=== PATIENT | female | born 1950 | race African-American/Black ===

== ENCOUNTER 2022-07-05 12:13 | Outpatient (CLI) | payer BC, MEDICARE, SELFPAY ==
[2022-07-05 18:44] LABS: Alanine Aminotransferase 12 U/L (6-35); Albumin Level 4.3 g/dL (3.5-5.1); Alkaline Phosphatase 57 U/L (38-126); Anion Gap 10 mmol/L (8-16); Aspartate Amino Transferase 36 U/L (14-36); Bilirubin,Total 0.8 mg/dL (0.2-1.3); Blood Urea Nitrogen 15 mg/dL (7-17); Calcium 9.7 mg/dL (8.4-10.2); Carbon Dioxide 29 mmol/L (22-30); Chloride 104 mmol/L (98-107); Cholesterol 194 mg/dL (0-200); Estimated Glomerular Filt Rate > 60; Glucose 96 mg/dL (65-110); HDL Direct 50 mg/dL; Sodium 143 mmol/L (137-145); Triglycerides 60 mg/dL (<150)
[2022-07-05 18:50] LABS: Basophils Percent Auto 0.4 % (0.2-1.2); Eosinophils Absolute Auto 0.1 K/mm3 (0-0.3); Hematocrit 44.2 % (37.0-47.0); Hemoglobin 14.2 g/dL (12.0-15.0); Immature Granulocyte Absolute 0.01 K/mm3 (0.00-0.031); Immature Granulocyte Percent A 0.1 % (0-0.5); Lymphocytes Absolute Auto 1.57 K/mm3 (0.9-3.2); Lymphocytes Percent Auto 23.5 % (18.3-44.2); Mean Corpuscular HGB Conc 32.1 g/dl (32-36); Mean Corpuscular Hemoglobin 30.6 pg (26-34); Mean Corpuscular Volume 95.3 fl (80-100); Monocytes Absolute Auto 0.4 K/mm3 (0.1-0.6); Monocytes Percent Auto 6.3 % (2.6-8.5); Neutrophils Absolute Auto 4.6 K/mm3 (1.3-6.7); Neutrophils Percent Auto 68.7 % (45.5-73.1); Platelet Count Result 216 k/mm3 (150-375); Red Blood Count 4.64 M/mm3 (4.2-5.4); Red Cell Distribution Width 13.2 % (11.5-14.5); White Blood Count 6.7 K/mm3 (4.5-10.0)
[2022-07-05 19:02] LABS: LDL Cholesterol Direct 108 mg/dL
== END 2022-07-05 12:14 | disposition home or self-care (01) ==
PROVIDERS: PCP Family Medicine; Visit Provider Nurse Practitioner Family
DX: E78.5 Hyperlipidemia, unspecified (principal); E55.9 Vitamin D deficiency, unspecified
CPT/HCPCS: 36415; 80053; 80061; 82306; 85025

== ENCOUNTER 2025-01-07 12:34 | Outpatient (CLI) | payer MEDICARE, SELFPAY ==
--- OUTSIDE RECORDS SUMMARY | 2025-01-07 13:39 | XMS_ITS | Clinical Summary ---
Author Organization [facility]era [facility] Address [address] [place] [address] Care Team Providers Care Optometric Assistant Name Role Phone Amelia Spear MD Primary Care Provider Allergies No known active allergies Medications memantine (NAMENDA) 5 mg Tablet Take 10 mg by mouth 2 times daily. Active atorvastatin (LIPITOR) 10 mg tablet Take 10 mg by mouth daily. Active sertraline (ZOLOFT) 50 mg tablet Take 50 mg by mouth daily. Active Active Problems No known active problems Family History Medical History Relation Name Comments No Known Problems Brother 1 Prostate Cancer Brother 2 No Known Problems Brother 3 No Known Problems Daughter 1 No Known Problems Daughter 2 No Known Problems Daughter 3 No Known Problems Father No Known Problems Mother No Known Problems Sister 1 No Known Problems Sister 2 No Known Problems Son 1 No Known Problems Son 2 No Known Problems Son 3 No Known Problems Son 4 Relation Name Status Comments Brother 1 Brother 2 Alive Brother 3 Alive Daughter 1 Alive Daughter 2 Alive Daughter 3 Alive Father Alive Mother Alive Sister 1 Alive Sister 2 Alive Son 1 Alive Son 2 Alive Son 3 Alive Son 4 Social History Tobacco Use Types Packs/Day Years Used Date Smoking Tobacco: Former Cigarettes Q uit: 10/02/2009 Tobacco Cessation:Counseling Given: Not Answered Comments Unknown Sex and Gender Information Value Date Recorded Sex Assigned at Not on file Legal Sex Female 1:53 PM CDT Gender Identity Not on file Sexual Orientation Not on file Last Filed Vital Signs Vital Sign Reading Time Taken Comments Blood Pressure 148/77 10/17/2022 1:42 PM PUBLIC AID ELIGIBILITY ASSISTANT Pulse 76 10/17/2022 1:42 PM PUBLIC AID ELIGIBILITY ASSISTANT Temperature 36.4 C (97.5 F) 10/17/2022 1:42 PM PUBLIC AID ELIGIBILITY ASSISTANT Respiratory Rate 16 10/17/2022 1:42 PM PUBLIC AID ELIGIBILITY ASSISTANT Oxygen Saturation 91% 10/17/2022 1:42 PM PUBLIC AID ELIGIBILITY ASSISTANT Inhaled Oxygen Concentration - - Weight 70.5 kg (155 lb 6.4 oz) 10/17/2022 1:42 P M PUBLIC AID ELIGIBILITY ASSISTANT Height 180.3 cm (5' 11 ) 10/17/2022 1:42 PM PUBLIC AID ELIGIBILITY ASSISTANT Body Mass Index 21.67 10/17/2022 1:42 PM PUBLIC AID ELIGIBILITY ASSISTANT Plan of Treatment Health Maintenance Due Date Last Done Comments DTAP/TDAP/TD VACCINES (1 - Tdap) 1969 BREAST CANCER SCREENING 1990 COLORECTAL SCREENING 1995 Colorectal Cancer Screening 1995 FIT-DNA Q 3 years 1995 FIT/FOBT Q 1 year 1995 Flex Sig/CT Colonography Q 5 years 1995 PNEUMOCOCCAL VACCINE 50+ YEARS (1 of 1 - PCV) 03/18/20 00 ZOSTER VACCINE (1 of 2) 2000 OSTEOPOROSIS SCREENING 2015 INFLUENZA VACCINE (#1) 2024 RSV VACCINE (60+ or ) (1 - 1-dose 75+ series) 2025 Insurance [employer] PPO MEDICARE PART A AND B Care Teams Optometric Assistant Relationship Specialty Start Date End Date Amelia Spear MD [address] [place] [address] PCP - General Family Practice 10/17/22
--- OUTSIDE RECORDS SUMMARY | 2025-01-07 13:39 | XMS_ITS | Clinical Summary ---
Author Organization [facility] Address [address] [place] [address] Care Team Providers Care Margarine Churn Operator Name Role Phone Amelia Separ MD Primary Care Provider Source Comments [facility],non-[facility] Affiliates and Associated Physician Practices is amultiple site organization consisting of ambulatory clinics and hospital sitesin [place], [place], [place] and [place]. This disclosure is being madepursuant to the Care Everywhere program and may not contain all information available regarding this patient. Last updated 18.[facility] Social History Tobacco Use Types Packs/Day Years Used Date Smoking Tobacco: Former Smokeless Tobacco: Never Sex and Gender Information Value Date Recorded Sex Assigned at Not on file Gender Identity Not on file Sexual Orientation Not on file Plan of Treatment Health Maintenance Due Date Last Done Comments BONE DENSITY TESTING 1950 COLOGUARD (AGES 45-75) - COL ON CA SCREENING 1950 COLON MONITORING 1950 COLONOSCOPY - COLON CA SCREENING 1950 CT COLONOGRAPHY - COLON CA SCREENING 1950 Colorectal Cancer Screening 1950 FIT - COLON CA SCREENING 1950 FLEX SIG - COLON CA SCREENING 1950 LIPID TESTING 1950 MAMMOGRAM 1950 MEDICARE AWV 12 MONTHS 1950 HEPATITIS C SCREENING 03/13/1968 DTAP/TDAP/TD VACCINES (1 - Tdap) 1969 PNEUMOCOCCAL VACCINE 50+ (1 of 1 - PCV) 2000 ZOSTER VACCINE (1 of 2) 2000 COVID-19 VACCINE (2023-2 5 season) 2024 INFLUENZA VACCINE (#1) 2024 DEPRESSION SCREENING 10/02/2024 Respiratory Syncytial Virus (RSV) Vaccine Pt: or over 60 yrs (1 - 1-dose 75+ series) 2025 HEPATITIS B VACCINE Aged Out No longe r eligible based on patient's age to complete this topic HIB VACCINE Aged Out No longer eligi ble based on patient's age to complete this topic HPV VACCINE Aged Out No longer eligi ble based on patient's age to complete this topic MENINGOCOCCAL (Group B) VACC INE SHARED DECISION-MAKING Aged Out No longer eligibl e based on patient's age to complete this topic MENINGOCOCCAL GROUPS A/C/Y/W VACCINE Aged Out No longer eligible b ased on patient's age to complete this topic Care Teams Margarine Churn Operator Relationship Specialty Start Date End Date Amelia Spear MD [address] [place] [address] PCP - General 09/08/21
[2025-01-07 16:06] LABS: Alanine Aminotransferase 16 U/L (6-35); Albumin Level 4.1 g/dL (3.5-5.1); Alkaline Phosphatase 58 U/L (38-126); Anion Gap 6 mmol/L (4-12); Aspartate Amino Transferase 28 U/L (14-36); Bilirubin,Total 1.1 mg/dL (0.2-1.3); Blood Urea Nitrogen 17 mg/dL (7-17); Calcium 9.5 mg/dL (8.4-10.2); Carbon Dioxide 33 mmol/L (22-30); Chloride 102 mmol/L (98-107); Cholesterol 219 mg/dL (0-200); Estimated Glomerular Filt Rate 60; Glucose 75 mg/dL (65-110); HDL Direct 49 mg/dL; Potassium 3.5 mmol/L (3.4-5.0); Sodium 141 mmol/L (137-145); Triglycerides 74 mg/dL (<150)
[2025-01-07 16:13] LABS: Vitamin D 25 Hydroxy 17.4 ng/mL
[2025-01-07 17:11] LABS: LDL Cholesterol Direct 131 mg/dL
[2025-01-07 17:21] LABS: Basophils Percent Auto 0.4 % (0.2-1.2); Eosinophils Absolute Auto 0.1 K/mm3 (0-0.3); Eosinophils Percent Auto 0.9 % (0-4.4); Immature Granulocyte Absolute 0.02 K/mm3 (0.00-0.031); Immature Granulocyte Percent A 0.3 % (0-0.5); Lymphocytes Absolute Auto 1.12 K/mm3 (0.9-3.2); Lymphocytes Percent Auto 16.3 % (18.3-44.2); Mean Corpuscular HGB Conc 31.8 g/dl (32-36); Mean Corpuscular Volume 94.2 fl (80-100); Monocytes Absolute Auto 0.7 K/mm3 (0.1-0.6); Monocytes Percent Auto 9.9 % (2.6-8.5); Neutrophils Percent Auto 72.2 % (45.5-73.1); Platelet Count Result 208 k/mm3 (150-375); Red Blood Count 4.67 M/mm3 (4.2-5.4); Red Cell Distribution Width 11.9 % (11.5-14.5); White Blood Count 6.9 K/mm3 (4.5-10.0)
[2025-01-07 19:36] LABS: Hemoglobin A1C 5.5 % (<5.7)
== END 2025-01-07 12:35 | disposition home or self-care (01) ==
PROVIDERS: PCP Family Medicine; Visit Provider Family Medicine
DX: E78.5 Hyperlipidemia, unspecified (principal); E55.9 Vitamin D deficiency, unspecified; R73.9 Hyperglycemia, unspecified; N39.0 Urinary tract infection, site not specified; G30.9 Alzheimer's disease, unspecified; F02.80 Dementia in other diseases classified elsewhere, unspecified severity, without behavioral disturbance, psychotic disturbance, mood disturbance, and anxiety; R41.3 Other amnesia; E53.8 Deficiency of other specified B group vitamins; Z79.899 Other long term (current) drug therapy
CPT/HCPCS: 36415; 80053; 80061; 82306; 82607; 83036; 84443; 85025; 87086

== ENCOUNTER 2025-01-09 11:51 | Emergency (ER) | payer MEDICARE, SELFPAY ==
--- NOTE | 2025-01-09 11:52 | ED_ITS ---
HPI - General Adult General Chief complaint: Extremity Problem,Nontraumatic Stated complaint: BILAT KNEE PAIN Time Seen by Provider: 01/09/25 11:51 Source: patient, RN notes reviewed and old records reviewed Mode of arrival: ambulatory Limitations: no limitations History of Present Illness HPI narrative: 74-year-old female presents to the [facility] with her daughter with complaints of bilateral knee pain that started 6 days ago. Patient denies any pain currently. No redness, swelling, ecchymosis noted. Patient with a significant history of dementia Related Data Home Medications ?Medication ?Instructions ?Recorded ?Confirmed ?Last Taken ?Type Aricept 01/09/25 Unknown History Namenda 01/09/25 Unknown History Zoloft 01/09/25 Unknown History atorvastatin 01/09/25 Unknown History Allergies Allergy/AdvReac Type Severity Reaction Status Date / Time No Known Allergies Allergy Verified 01/09/25 11:54 Review of Systems Review of Systems: All systems reviewed & are unremarkable except as noted in HPI and below Constitutional: Constitutional: Reports no additional constitutional complaints ENT: Reports system reviewed and no additional complaints, except as documented Cardiovascular: Cardiovascular: Reports no additional cardiovascular complaints, Denies chest pain and Denies dyspnea Respiratory: Respiratory: Reports no additional respiratory complaints, Denies chest congestion, Denies cough and Denies dyspnea Musculoskeletal: Musculoskeletal: Reports as per HPI Integumentary/Breasts: Skin/Breast: Reports system reviewed and no additional complaints, except as docu PMFSH Comments At the time of my signature, I reviewed and agree with the nursing past medical, surgical, social, and family history. There is no relevant family history pertinent to the patient complaint. Exam Const: General: cooperative, no acute distress, well developed, alert and well nourished Nutritional Appearance: well nourished Orientation/consciousness: patient oriented x3 Limitations: no limitations HENMT: Head: normal to inspection Eyes: General: appearance normal, both eyes and all related structures Alignment and Position: alignment normal Neck: Neck: normal visual inspection, full ROM, no lymphadenopathy and no meningeal signs Chest: Chest palpation & inspection: normal inspection of the chest Resp: Effort & Inspection: normal respiratory effort and able to speak in c omplete sentences Cardio: Rate: regular rate Skin: General skin exam: normal color and no rashes or lesions noted Neuro: General: patient oriented x3, gait normal, moves all extremities and no meningeal signs Cognition (Neuro): normal cognition Speech: normal speech Gait exam (Neuro): Normal gait present Extrem: General: normal to inspection, full ROM, capillary refill normal and normal gait Right lower extremity: knee Details: normal ROM; no tenderness, no swelling, no abrasions, no lacerations, no ecchymosis and no crepitus Left lower extremity: knee Details: normal ROM; no tenderness, no swelling, no abrasions, no lacerations, no ecchymosis and no penetrating wound Psych: Appearance: grossly normal and well kempt Mental Status: mental status grossly normal Speech and movement: Normal speech and movement present and Clear speech present Affect: normal affect Attitude: cooperative Course Course Level of Care: Express Care Visit Vital Signs Vital signs: Vital Signs Temperature 96.8 F L 01/09/25 11:56 Pulse Rate 64 01/09/25 11:56 Respiratory Rate 16 01/09/25 11:56 Blood Pressure 176/90 H 01/09/25 11:56 Pulse Oximetry 100 01/09/25 11:56 Temperature 96.8 F L 01/09/25 11:56 Pulse Rate 64 01/09/25 11:56 Respiratory Rate 16 01/09/25 11:56 Blood Pressure 176/90 H 01/09/25 11:56 Pulse Oximetry 100 01/09/25 11:56 Reviewed Medical Decision Making MDM Narrative Medical decision making narrative: Patient sitting comfortably in exam room. Nontoxic, vitals stable. Patient in no acute distress Patient presents for with daughter. No trauma, no erythema, no ecchymosis, patient walked with a normal gait. Palpating the knees bilaterally patient denied any pain at this time. Most likely arthritis in nature. Offered x-rays, discussed that they will most likely show arthritic changes. Daughter agreed and declined x-rays at this time. Patient appropriate for outpatient treatment with close Discharge instructions reviewed with patient, as well as provided in writing per nursing staff. The instructions also include specific and strict return/GO TO THE ER as well as f/u information. All questions have been answered, and the patient deny any further questions with discharge and discharge plan. Some parts of this dictation were generated by voice recognition software and may contain typographical and/or grammatical inaccuracies. Differential Diagnosis Differential Diagnosis: arthritis Medical Records Medical records reviewed: Yes I reviewed the external patient's medical records. Vital Signs Vital Signs: Vital Signs Temperature 96.8 F L 01/09/25 11:56 Pulse Rate 64 01/09/25 11:56 Respiratory Rate 16 01/09/25 11:56 Blood Pressure 176/90 H 01/09/25 11:56 Pulse Oximetry 100 01/09/25 11:56 Temperature 96.8 F L 01/09/25 11:56 Pulse Rate 64 01/09/25 11:56 Respiratory Rate 16 01/09/25 11:56 Blood Pressure 176/90 H 01/09/25 11:56 Pulse Oximetry 100 01/09/25 11:56 Reviewed Lab Data Lab results reviewed: Yes I reviewed the patient's lab results. Labs: Reviewed Critical Care Time Critical Care Time Critical Care Time: No Discharge Plan Discharge Clinical Impression: Arthralgia of both knees Patient Disposition: Home Condition: Stable Instructions: Osteoarthritis (ED) Additional Instructions: Follow-up with primary care provider as already scheduled You can use creams such as Voltaren arthritis. Give Tylenol per package instructions Applying warm moist heat can help For new or worsening symptoms go directly to emergency room Patient Language: Yoruba Prescriptions: No Action Aricept Namenda atorvastatin Zoloft Follow-up/Referrals: Sola Spear MD [Primary Care Provider] - 1 Week (express care follow up) Time of Disposition: 12:02
[2025-01-09 11:56] VITALS: BP 176/90; PULSE 64; RESP 16; TEMP 36; O2SAT 100
== END 2025-01-09 12:10 | disposition home or self-care (01) ==
PROVIDERS: Emergency Provider Nurse Practitioner; PCP Family Medicine
DX: M25.562 Pain in left knee (principal); M25.561 Pain in right knee; G30.9 Alzheimer's disease, unspecified; F02.80 Dementia in other diseases classified elsewhere, unspecified severity, without behavioral disturbance, psychotic disturbance, mood disturbance, and anxiety; E78.00 Pure hypercholesterolemia, unspecified
CPT/HCPCS: 99212; G0463